=== PATIENT | male | born 1995 | race Caucasian/White ===

== ENCOUNTER 2017-05-24 10:49 | Day surgery (SDC) | payer OTHER ==
[~2017-05-24 10:49] MED LIST: Betamethasone Acetate/Betamethasone Sod Phosphate 30 MG/5 ML MDV ONE; Iopamidol 408 MG/ML 50 ML SDV ONE; Lidocaine 2% 5 ML SDV ONE; Ropivacaine 0.5% 5 MG/ML 30 ML SDV ONE
--- NOTE | 2017-05-24 18:23 | OR ---
SURGEON: Mreline Lucero D.O. DATE OF PROCEDURE: 05/24/2017 OR STAFF PRESENT: 1. DEMARIO Burrell RN. 2. David Young RN. 3. lApa White RN. ELECTROLYSIS NEEDLE OPERATOR: ROYAL Waite. WOUND CLASSIFICATION: I. PREOPERATIVE DIAGNOSES: 1. Multilevel degenerative disk disease. 2. Herniated disk. 3. Chronic low back pain. 4. Lumbar radiculopathy POSTOPERATIVE DIAGNOSES: 1. Multilevel degenerative disk disease. 2. Herniated disk. 3. Chronic low back pain. 4. Lumbar radiculopathy PROCEDURES PERFORMED: 1. Intralaminar epidural steroid injection at L3-L4. 2. Fluoroscopic guidance for needle placement. 3. Local with oral Valium for sedation. SCREENING QUESTIONS: The patient answered "no" to all of the following questions: 1. Are you allergic to latex? 2. Do you have a bleeding disorder? 3. Do you have any current local or systemic infections? 4. Are you taking any anti-inflammatories or blood thinners? 5. Do you have any joint replacements, heart valve replacements, or a pacemaker? DESCRIPTION OF PROCEDURE: The patient had the procedure thoroughly explained including all possible risks, benefits and alternatives. Consent was signed in my clinic indicating understanding and willingness to proceed. The patient presented to [facility] and was escorted to the dressing room to disrobe and change into a hospital gown. Preoperative vital signs were taken and stable. The patient reported that Valium was taken prior to the procedure. The patient was brought back to the procedure room and placed in the prone position on the procedure room table. A pillow was placed under the hips in order to flatten the lumbar lordosis. The back was prepped with ChloraPrep and sterilely draped. All personnel in the operating room were dressed in appropriate attire including surgical scrubs, head and shoe covers. This was to ensure sterility while in the treatment room. During the time fluoroscopy was in use, all personnel in the operating room wore lead smith with thyroid collars. Sterile technique was used throughout the procedure. The patient was awake and conversant throughout the procedure. There was no evidence of infection at the site of needle insertion. Skeletal landmarks were identified under fluoroscopy for the lumbar epidural. Skin was anesthetized with 2% lidocaine with a sterile 27-gauge 1.5 inch needle. Then a 20-gauge Tuohy epidural needle was placed in the epidural space with loss of resistance technique under fluoroscopic guidance. No heme, cerebrospinal fluid, or paresthesias were noted. Isovue-200 contrast dye was injected in 0.2 cubic centimeter increments and seen to outline the epidural space in both AP and lateral views. There was no intravascular flow pattern observed under live fluoroscopy. Then 12 milligrams of Celestone was slowly injected after negative aspiration. The patient tolerated the procedure well. Vital signs were stable during and after the procedure. The staff escorted the patient to the recovery area and the patient was released in stable condition after a brief stay in the recovery room monitored by the nurse. The patient was given both oral and written discharge and follow up instructions with recommendation to follow up given for 2-3 weeks. The patient voiced understanding including understanding of those signs and symptoms that would require emergency care. The patient knows how to contact the office if there are any additional problems or questions in the meantime. PREOPERATIVE PAIN: 9/10. POSTOPERATIVE PAIN: 7/10. PLAN: Followup in the Pain Clinic in 3 weeks. PATT / LISA /[id number] TIM
== END 2017-05-24 13:20 | disposition home or self-care (01) ==
LOC: MW.SDS 10:49
PROVIDERS: ATTEND Anesthesiology
DX: G89.29 Other chronic pain (principal); M51.16 Intervertebral disc disorders with radiculopathy, lumbar region; M48.061 Spinal stenosis, lumbar region without neurogenic claudication; M51.37 Other intervertebral disc degeneration, lumbosacral region; M79.1 Myalgia; F17.200 Nicotine dependence, unspecified, uncomplicated; Z88.0 Allergy status to penicillin; Z79.1 Long term (current) use of non-steroidal anti-inflammatories (NSAID); Z79.899 Other long term (current) drug therapy
CPT/HCPCS: 62323; J0702; J2795; Q9966

== ENCOUNTER 2017-05-25 11:01 | Emergency (ER) | payer OTHER ==
--- NOTE | 2017-05-25 11:19 | EDM.PDOC ---
ED HPI GENERAL MEDICAL PROBLEM - General Stated Complaint: PAIN AND WEAKNESS Time Seen by Provider: 05/25/17 11:12 - History of Present Illness INITIAL COMMENTS - FREE TEXT/NARRATIVE: HISTORY AND PHYSICAL: History of present illness: Patient's 22-year-old white male with history of chronic back pain with multilevel disc disease with an epidural injection yesterday by pain management and now comes with increasing pain and weakness he has had some pain and weakness but states this is worse since the injection seen by his pain management physician who referred him here for evaluation and imaging as indicated. He denies incontinence or retention of bowel or bladder or other concern at this point no fever or chills Review of systems: As per history of present illness and below otherwise all systems reviewed and negative. Past medical history: As per history of present illness and as reviewed below otherwise noncontributory. Surgical history: As per history of present illness and as reviewed below otherwise noncontributory. Social history: No reported history of drug or alcohol abuse. Family history: As per history of present illness and as reviewed below otherwise noncontributory. Physical exam: HEENT: Atraumatic, normocephalic, pupils reactive, negative for conjunctival pallor or scleral icterus, mucous membranes moist, throat clear, neck supple, nontender, trachea midline. Lungs: Clear to auscultation, breath sounds equal bilaterally, chest nontender. Heart: S1S2, regular, negative for clicks, rubs, or JVD. Abdomen: Soft, nondistended, nontender. Negative for masses or hepatosplenomegaly. Negative for costovertebral tenderness. Pelvis: Stable nontender. Genitourinary: Deferred. Rectal: Deferred. Extremities: Atraumatic, negative for cords or calf pain. Neurovascular unremarkable. Neuro: Awake, alert, oriented. Cranial nerves II through XII unremarkable. Cerebellum unremarkable. Motor and sensory unremarkable throughout. Exam nonfocal. Back: Patient has the injection site noted at the L2 level there is no erythema no fluctuance no induration no point vertebral body tenderness motor and sensory exam are unremarkable there is no perineal numbness and deep tendon reflexes are 2+ bilateral Diagnostics: CBC CMP MRI lumbar spine Therapeutics: Normal saline Dilaudid 1 mg IV Zofran 4 mg IV Impression: #1 degenerative disc disease #2 observation 24-hour status post epidural injection with increased pain/weakness Definitive disposition and diagnosis as appropriate pending reevaluation and review of above. - Related Data Allergies Allergy/AdvReac Type Severity Reaction Status Date / Time Penicillins Allergy Cannot Verified 05/25/17 11:51 Remember ED ROS GENERAL - Review of Systems Review Of Systems: ROS reveals no pertinent complaints other than HPI. ED EXAM, GENERAL - Physical Exam Exam: See Below (See dictation) Course - Vital Signs Last Recorded V/S: Last Vital Signs Temp 36.8 C 05/25/17 12:12 Pulse 96 05/25/17 12:12 Resp 18 05/25/17 12:12 BP 130/62 05/25/17 12:12 Pulse Ox 97 05/25/17 12:12 - Orders/Labs/Meds Orders: Active Orders 24 hr Category Date Time Status Lumbar Spine Comp w Cont [MR] Stat Exams 05/25/17 11:38 Stop Req Labs: Laboratory Tests 05/25/17 05/25/17 Range/Units 11:51 11:51 WBC 15.80 H (4.0-11.0) K/uL RBC 4.95 (4.50-5.90) M/uL Hgb 14.9 (13.0-17.0) g/dL Hct 42.5 (38.0-50.0) % MCV 85.9 (80.0-98.0) fL MCH 30.1 (27.0-32.0) pg MCHC 35.1 (31.0-37.0) g/dL RDW Std Deviation 41.0 (28.0-62.0) fl RDW Coeff of Alexy 13 (11.0-15.0) % Plt Count 290 (150-400) K/uL MPV 10.80 (7.40-12.00) fL Neut % (Auto) 82.0 H (48.0-80.0) % Lymph % (Auto) 8.6 L (16.0-40.0) % Lyman % (Auto) 9.3 (0.0-15.0) % Eos % (Auto) 0.0 (0.0-7.0) % Baso % (Auto) 0.1 (0.0-1.5) % Neut # (Auto) 13.0 H (1.4-5.7) K/uL Lymph # (Auto) 1.4 (0.6-2.4) K/uL Lyman # (Auto) 1.5 H (0.0-0.8) K/uL Eos # (Auto) 0.0 (0.0-0.7) K/uL Baso # (Auto) 0.0 (0.0-0.1) K/uL Nucleated RBC % 0.0 /100WBC Nucleated RBCs # 0 K/uL Sodium 141 (136-146) mmol/L Potassium 3.9 (3.5-5.1) mmol/L Chloride 108 (98-110) mmol/L Carbon Dioxide 23 (21-31) mmol/L BUN 14 (6.0-23.0) mg/dL Creatinine 0.8 (0.6-1.5) mg/dL Est Cr Clr Drug Dosing TNP Estimated GFR (MDRD) > 60.0 ml/min Glucose 105 (60-110) mg/dL Calcium 9.8 (8.8-10.8) mg/dL Total Bilirubin 0.4 (0.1-1.5) mg/dL AST 17 (5-40) IU/L ALT 19 (8-54) IU/L Alkaline Phosphatase 65 (40-150) Total Protein 7.5 (6.0-8.0) g/dL Albumin 4.6 (3.5-5.0) g/dL Globulin 2.9 (2.0-3.5) g/dL Albumin/Globulin Ratio 1.6 (1.3-2.8) Meds: Medications Discontinued Medications Generic Name Dose Route Start Last Admin Trade Name Freq PRN Reason Stop Dose Admin Gadobenate Dimeglumine 20 ml 05/25/17 13:02 05/25/17 13:03 Multihance IVPUSH 05/25/17 13:03 17 ml ONETIME STA Administration Hydromorphone HCl 1 mg 05/25/17 11:39 05/25/17 11:55 Dilaudid IVPUSH 05/25/17 11:40 1 mg ONETIME ONE Administration Departure - Departure Time of Disposition: 14:33 Disposition: Home, Self-Care 01 Condition: Good Clinical Impression: Degenerative disc disease - Discharge Information Referrals: Layton Gonzalez MD [Primary Care Provider] - Additional Instructions: The following information is given to patients seen in the emergency department who are being discharged to home. This information is to outline your options for follow-up care. We provide all patients seen in our emergency department with a follow-up referral. The need for follow-up, as well as the timing and circumstances, are variable depending upon the specifics of your emergency department visit. If you don't have a primary care physician on staff, we will provide you with a referral. We always advise you to contact your personal physician following an emergency department visit to inform them of the circumstance of the visit and for follow-up with them and/or the need for any referrals to a consulting specialist. The emergency department will also refer you to a specialist when appropriate. This referral assures that you have the opportunity for followup care with a specialist. All of these measure are taken in an effort to provide you with optimal care, which includes your followup. Under all circumstances we always encourage you to contact your private physician who remains a resource for coordinating your care. When calling for followup care, please make the office aware that this follow-up is from your recent emergency room visit. If for any reason you are refused follow-up, please contact the [facility] emergency department at and asked to speak to the emergency department charge nurse. Follow-up primary medical doctor in pain clinic as discussed continue current medications return as needed as discussed - My Orders Last 24 Hours: My Active Orders 05/25/17 11:38 Lumbar Spine Comp w Cont [MR] Stat - Assessment/Plan Last 24 Hours: My Active Orders 05/25/17 11:38 Lumbar Spine Comp w Cont [MR] Stat
[2017-05-25] MEDS ORDERED: HYDROmorphone 1 MG/ML Syringe IVPUSH ONE (11:39)
[2017-05-25 12:42] LABS: CHLORIDE,CL 108 mmol/L (98-110); SODIUM,NA 141 mmol/L (136-146)
[2017-05-25] MEDS ORDERED: Gadobenate Dimeglumine 529 MG/ML 20 ML SDV IVPUSH STA (13:02)
--- NOTE | 2017-05-25 14:19 | MR ---
EXAMINATION: MRI lumbar spine with and without contrast HISTORY: Back pain COMPARISON: MRI dated 02/26/2017 TECHNIQUE: Multiplanar and multisequence imaging obtained of the lumbar spine before and following th e administration of 17 mL of MultiHance. FINDINGS: The lumbar spinal alignment is normal. The vertebral body heights appear well maintained. B one mineralization is normal. Distal spinal cord appears normal and the conus terminates at L1. Visua lized retroperitoneal structures are normal. The SI joints are symmetric. There are a few small T1 an d T2 dark signal foci within the posterior epidural space at L3. No abnormal enhancement is noted. T12-L1: Unremarkable. L1-L2: Unremarkable. L2-L3: Moderate broad-based disc protrusion with a slight inferior extrusion component, grossly uncha nged. There is mild underlying spinal canal stenosis. No significant neural foraminal stenosis. L3-L4: Tiny diffuse disc bulge without significant spinal canal or neural foraminal stenosis. L4-L5: Small diffuse disc bulge with minimal spinal canal stenosis. Mild bilateral neural foraminal s tenosis. L5-S1: Unremarkable. IMPRESSION: 1. Multilevel degenerative disc disease most prominent at L2-L3, not significantly changed from the p rior MRI. 2. Several small dark foci within the posterior epidural space at L3. Likely small foci of air, not u nexpected, from recent epidural steroid injection. 2. No acute findings demonstrated.
== END 2017-05-25 14:37 | disposition home or self-care (01) ==
LOC: MW.ED 11:01
DX: M51.36 Other intervertebral disc degeneration, lumbar region (principal); Z88.0 Allergy status to penicillin; Z51.81 Encounter for therapeutic drug level monitoring; Z79.891 Long term (current) use of opiate analgesic
CPT/HCPCS: 36415; 72158; 80053; 80305; 85025; 96374; 99284; A9577; J1170; 99282

== ENCOUNTER 2020-06-22 08:57 | Day surgery (SDC) | payer OTHER ==
[~2020-06-22 08:57] MED LIST changes: -Betamethasone Acetate/Betamethasone Sod Phosphate 30 MG/5 ML MDV ONE; -Iopamidol 408 MG/ML 50 ML SDV ONE; +Lactated Ringers 1,000 ML IV SCH; -Lidocaine 2% 5 ML SDV ONE; -Ropivacaine 0.5% 5 MG/ML 30 ML SDV ONE; +Sodium Chloride 0.9% 10 ML SDV IV PRN; +Sodium Chloride 0.9% 10 ML Syringe FLUSH PRN; +Sodium Chloride 0.9% 2.5 ML Syringe FLUSH PRN
[2020-06-22] MEDS ORDERED: fentaNYL 100 MCG/2 ML SDV ONE (10:07)
[2020-06-22] MEDS ORDERED: Propofol 200 MG/20 ML SDV ONE ×3 (10:07→10:27)
[2020-06-22] MEDS ORDERED: Midazolam 1 MG/ML 2 ML SDV ONE (10:07)
--- NOTE | 2020-06-22 10:17 | PCM.PREANE ---
Preanesthetic Assessment - Anesthesia/Transfusion/Family Hx Anesthesia History: Prior Anesthesia Without Reaction Family History of Anesthesia Reaction: No Transfusion History: No Prior Transfusion(s) Intubation History: Unknown - Review of Systems General: No Symptoms Pulmonary: No Symptoms Cardiovascular: No Symptoms Gastrointestinal: Abdominal Pain, Diarrhea, Melena, Nausea Neurological: No Symptoms Other: Reports: None - Physical Assessment Vital Signs: Last Vital Signs Temp 36.5 C 06/22/20 10:00 Pulse 78 06/22/20 10:00 Resp 16 06/22/20 10:00 BP 128/71 06/22/20 10:00 Pulse Ox 97 06/22/20 10:00 Height: 5 ft 10 in Weight: 85.729 kg ASA Class: 2 Mental Status: Alert & Oriented x3 Airway Class: Mallampati = 1 Dentition: Reports: Normal Dentition Thyro-Mental Finger Breadths: 3 Mouth Opening Finger Breadths: 3 ROM/Head Extension: Full Lungs: Clear to Auscultation, Normal Respiratory Effort Cardiovascular: Regular Rate, Regular Rhythm - Allergies Allergies/Adverse Reactions: Allergies Allergy/AdvReac Type Severity Reaction Status Date / Time Penicillins Allergy Cannot Verified 06/22/20 09:56 Remember - Blood Blood Available: No - Anesthesia Plan Pre-Op Medication Ordered: None - Acknowledgements Anesthesia Type Planned: MAC Pt an Appropriate Candidate for the Planned Anesthesia: Yes Alternatives and Risks of Anesthesia Discussed w Pt/Guardian: Yes Pt/Guardian Understands and Agrees with Anesthesia Plan: Yes PreAnesthesia Questionnaire HEENT History: Reports: Other (See Below) Other HEENT History: wears glasses Cardiovascular History: Reports: None Respiratory History: Reports: Asthma Gastrointestinal History: Reports: Chronic Diarrhea Other Gastrointestinal History: intermittent abd pain, Genitourinary History: Reports: None Musculoskeletal History: Reports: Back Pain, Chronic (chronic opioid use for back pain), Fracture Other Musculoskeletal History: hx fx back and collarbone Neurological History: Reports: None Psychiatric History: Reports: None Endocrine/Metabolic History: Reports: None Hematologic History: Reports: None Immunologic History: Reports: None Oncologic (Cancer) History: Reports: None Dermatologic History: Reports: None - Infectious Disease History Infectious Disease History: Reports: None - Past Surgical History Head Surgeries/Procedures: Reports: None HEENT Surgical History: Reports: Myringotomy w Tube(s), Tonsillectomy Cardiovascular Surgical History: Reports: None Respiratory Surgical History: Reports: None GI Surgical History: Reports: None Male Surgical History: Reports: None Endocrine Surgical History: Reports: None Neurological Surgical History: Reports: Spinal Fusion (09/22 - pain got worse) Other Musculoskeletal Surgeries/Procedures:: hx left collarbone reconstruction Oncologic Surgical History: Reports: None Dermatological Surgical History: Reports: None - SUBSTANCE USE Tobacco Use Status *Q: Current Every Day Tobacco User (1/2-1 ppd) Tobacco Use Within Last Twelve Months: Cigarettes Recreational Drug Type: Reports: Marijuana/Hashish - HOME MEDS Home Medications: Home Meds Albuterol [Ventolin HFA] 2 puff INH ASDIRECTED PRN 06/16/20 [History] Gabapentin [Neurontin] 2 tab PO TID 06/16/20 [History] Omeprazole 40 mg PO DAILY 06/16/20 [History] Sucralfate 1 gm PO QID 06/16/20 [History] - CURRENT (IN HOUSE) MEDS Current Meds: Current Medications Lactated Ringer's (Ringers, Lactated) 1,000 mls @ 125 mls/hr IV ASDIRECTED DON Last Admin: 06/22/20 09:55 Dose: 125 mls/hr Documented by: Sodium Chloride (Saline Flush) 10 ml FLUSH ASDIRECTED PRN PRN Reason: Keep Vein Open Sodium Chloride (Saline Flush) 2.5 ml FLUSH ASDIRECTED PRN PRN Reason: Keep Vein Open Sodium Chloride (Saline Flush) 10 ml FLUSH ASDIRECTED PRN PRN Reason: Keep Vein Open Sodium Chloride (Saline Flush) 2.5 ml FLUSH ASDIRECTED PRN PRN Reason: Keep Vein Open Sodium Chloride (Normal Saline) 10 ml IV ASDIRECTED PRN PRN Reason: IV Use Discontinued Medications Fentanyl (Sublimaze) Confirm Administered Dose 100 mcg .ROUTE .STK-MED ONE Stop: 06/22/20 10:08 Lidocaine HCl (Xylocaine-Mpf 1%) Confirm Administered Dose 5 ml .ROUTE .STK-MED ONE Stop: 06/22/20 10:08 Midazolam HCl (Versed 1 Mg/Ml) Confirm Administered Dose 2 mg .ROUTE .STK-MED ONE Stop: 06/22/20 10:08 Propofol (Diprivan 20 Ml) Confirm Administered Dose 400 mg .ROUTE .STK-MED ONE Stop: 06/22/20 10:08 Propofol (Diprivan 20 Ml) Confirm Administered Dose 200 mg .ROUTE .[facility] ONE Stop: 06/22/20 10:09
[2020-06-22] MEDS ORDERED: Ketamine 500 mg/10 ML MDV ONE (10:27)
--- NOTE | 2020-06-22 11:56 | PCM.POSTAN ---
POST ANESTHESIA ASSESSMENT - MENTAL STATUS Mental Status: Alert, Oriented - VITAL SIGNS Vital Signs: Last Vital Signs Temp 36.5 C 06/22/20 10:00 Pulse 69 06/22/20 11:53 Resp 18 06/22/20 11:53 BP 112/60 06/22/20 11:53 Pulse Ox 95 06/22/20 11:53 - RESPIRATORY Respiratory Status: Respiratory Rate WNL, Airway Patent, O2 Saturation Stable - CARDIOVASCULAR CV Status: Pulse Rate WNL, Blood Pressure Stable - GASTROINTESTINAL GI Status: No Symptoms - PAIN Pain Score: 0 - POST OP HYDRATION Hydration Status: Adequate & Stable - OBSERVATIONS Free Text/Narrative:: No anesthesia problems
--- NOTE | 2020-06-22 12:06 | PCM48HPAN ---
Post Anesthesia Note - EVALUATION WITHIN 48HRS OF ANESTHETIC Vital Signs in Normal Range: Yes Patient Participated in Evaluation: Yes Respiratory Function Stable: Yes Airway Patent: Yes Cardiovascular Function Stable: Yes Hydration Status Stable: Yes Pain Control Satisfactory: Yes Nausea and Vomiting Control Satisfactory: Yes Mental Status Recovered: Yes Vital Signs: Last Vital Signs Temp 36.5 C 06/22/20 10:00 Pulse 69 06/22/20 11:53 Resp 18 06/22/20 11:53 BP 112/60 06/22/20 11:53 Pulse Ox 95 06/22/20 11:53 - COMMENTS/OBSERVATIONS Free Text/Narrative:: No anesthesia problems
--- NOTE | 2020-06-22 13:16 | PCM.OPNOTE ---
- General Post-Op/Procedure Note Date of Surgery/Procedure: 06/22/20 Operative Procedure(s): Diagnostic EGD and colonoscopy Findings: Acute gastritis, normal colon Pre Op Diagnosis: H pylori, colon abnormality on CT Post-Op Diagnosis: Acute gastritis Anesthesia Technique: EDY Primary Surgeon: Rosalva Claros Condition: Good Free Text/Narrative:: Intake & Output 06/21/20 06/22/20 06/22/20 22:59 06:59 14:59 Intake Total 1400 Balance 1400
--- NOTE | 2020-06-23 13:30 | OR ---
SURGEON: ROSALVA CLAROS MD DATE OF PROCEDURE: 06/22/2020 PREOPERATIVE DIAGNOSES: 1. Helicobacter pylori infection. 2. Colon abnormality on CT scan. POSTOPERATIVE DIAGNOSES: 1. Acute gastritis. 2. Normal colon. PROCEDURE PERFORMED: Diagnostic esophagogastroduodenoscopy and colonoscopy. PRIMARY SURGEON: Rosalva Claros MD ANESTHESIA: MAC. INSTRUMENT USED: Olympus endoscope and colonoscope. EXTENT OF EXAM: To the second portion of duodenum, to the cecum. PREPARATION: Good. LIMITATIONS: None. INDICATIONS FOR EXAMINATION: The patient is a 25-year-old male who presented to my clinic with severe upper abdominal pain. A CT scan was done that day that showed thickening along the descending colon. The patient underwent stool testing, was found to be H pylori positive. He was placed on treatment and his abdominal pain has slowly been resolving. The decision was made to still proceed with diagnostic EGD and colonoscopy to determine if the patient has ulcers and to see what is going on in the colon. I explained the procedure, expected perioperative course, and the risks. The patient verbalized understanding and wishes to proceed. PROCEDURE IN DETAIL: The patient was brought into the endoscopy suite and placed in the left lateral decubitus position. A time-out was completed verifying the patient's name, age, date of , allergies, and procedure to be performed. A bite block was placed in the patient's mouth and monitored anesthesia care was induced. Continuous oxygen was provided via nasal cannula throughout the procedure. After adequate sedation was achieved, a well-lubricated endoscope was placed in the patient's mouth and advanced under direct visualization to the second portion of duodenum. This appeared normal and a photograph was taken. The scope was then fully withdrawn while examining the color, texture, anatomy, and integrity of the mucosa of the upper GI tract. The duodenal mucosa appeared normal. There was no evidence of any ulcers or inflammation. The scope was brought into the stomach. A photograph was taken of the pylorus and GE junction, which appeared anatomically normal. Diffusely, the gastric mucosa appeared inflamed, but I saw no evidence of ulceration. Biopsies were taken of the gastric antrum, body, and fundus and sent for histologic review and H pylori testing. The scope was brought into the distal esophagus. The Z-line appeared normal. The distal esophageal mucosa appeared normal. A photograph was taken of the Z-line. The remainder of the esophageal mucosa was free of pathology. The scope was removed and this portion of the procedure terminated. A digital rectal exam was performed. This appeared normal. A well-lubricated colonoscope was inserted in the rectum and advanced under direct visualization to the level of the cecum. The cecum was identified by both visual and anatomic landmarks. A photograph was taken of the cecal cap as well as with the scope retroflexed within the cecum. I also took a photograph of the scope within the terminal ileum. All of these appeared normal. The scope was then straightened out and fully withdrawn while examining the color, texture, anatomy, and integrity of the mucosa from the cecum to the anal canal. The findings were consistent with normal colonic mucosa. Random biopsies were taken in the cecum, transverse colon, descending colon, sigmoid colon as well as the rectum and sent to pathology for histologic review. The scope was retroflexed within the rectum to allow visualization of the anal canal opening. This appeared normal and a photograph was taken. The scope was then straightened out and fully withdrawn. The cecum to anus time was 7 minutes. The patient tolerated the procedure well and was transferred to the PACU in stable condition. ENDOSCOPIC DIAGNOSIS: Acute gastritis. RECOMMENDATIONS: We will follow up with the patient in clinic in 2 weeks. In the meantime, he should continue his antibiotic regimen for his H pylori infection. MY GONZALEZ /[id number]
== END 2020-06-22 12:15 | disposition home or self-care (01) ==
LOC: MW.SDS 08:57
PROVIDERS: ATTEND Surgery
DX: R93.3 Abnormal findings on diagnostic imaging of other parts of digestive tract (principal); R19.7 Diarrhea, unspecified; A04.8 Other specified bacterial intestinal infections; K29.50 Unspecified chronic gastritis without bleeding; K29.00 Acute gastritis without bleeding; K92.1 Melena; J45.909 Unspecified asthma, uncomplicated; F17.210 Nicotine dependence, cigarettes, uncomplicated; Z79.899 Other long term (current) drug therapy; Z98.1 Arthrodesis status; Z88.0 Allergy status to penicillin; Z98.890 Other specified postprocedural states
CPT/HCPCS: 43239; 45380; J2001; J2250; J2704; J3010; J7120; 00813; 88305; 88312